=== PATIENT | male | born 1935 | race Caucasian/White ===

== ENCOUNTER 2020-04-30 07:22 | Emergency (ER) | payer MEDICARE ==
[~2020-04-30] VITALS: Ht 177.8 cm; Wt 90.9 kg
[2020-04-30] MEDS ORDERED: MORPHINE SULFATE 4 MG/ML, 1ML ONE (07:44)
[2020-04-30] MEDS ORDERED: PLEASE ENTER HEIGHT AND WEIGHT MC SCH (08:00)
[2020-04-30] MEDS ORDERED: MORPHINE SULFATE 4 MG/ML, 1ML IVPush PRN (08:00)
[2020-04-30] MEDS ORDERED: SODIUM CHLORIDE FLUSH 10ML SYR IVF ONE (08:00)
[2020-04-30] MEDS ORDERED: PLEASE ENTER ALLERGIES MC SCH (08:00)
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
[2020-04-30] MEDS ORDERED: LIDOCAINE 1%-EPI 1:100K, 20ML SQ ONE (09:00)
[2020-04-30] MEDS ORDERED: LIDOCAINE 1%-EPI 1:100K, 20ML ONE (09:05)
[2020-04-30] MEDS ORDERED: NEOSPORIN OINT. PKT 1 PACKET ONE ×2 (09:41→09:56)
[2020-04-30] MEDS ORDERED: OXYcodone/APAP 5/325MG TABLET ONE (10:13)
[2020-04-30] MEDS ORDERED: OXYcodone/APAP 5/325MG TABLET PO ONE (10:30)
== END 2020-04-30 10:19 | disposition home or self-care (01) ==
LOC: MERGE 09:33 → ED 09:33
DX: S42.222A 2-part displaced fracture of surgical neck of left humerus, initial encounter for closed fracture (principal); S01.111A Laceration without foreign body of right eyelid and periocular area, initial encounter; S50.812A Abrasion of left forearm, initial encounter; I10 Essential (primary) hypertension; E78.00 Pure hypercholesterolemia, unspecified; W01.0XXA Fall on same level from slipping, tripping and stumbling without subsequent striking against object, initial encounter; Y93.89 Activity, other specified; Y92.009 Unspecified place in unspecified non-institutional (private) residence as the place of occurrence of the external cause; Y99.8 Other external cause status
CPT/HCPCS: 12011; 70450; 73030; 96374; 99284; J2270

== ENCOUNTER 2020-05-05 10:02 | Emergency (ER) | payer MEDICARE, OTHER ==
[~2020-05-05] VITALS: Ht 177.8 cm; Wt 89.4 kg
[2020-05-05 10:05] VITALS: BP 153/69
--- NOTE | 2020-05-05 10:19 | NUR ---
[facility] WATTS AT BEDSIDE FOR STAPLE REMOVAL.
--- NOTE | 2020-05-05 11:17 | NUR ---
PT D/C PER TITA, VERBALIZED UNDERSTANDING OF D/C INSTRUCTIONS.
== END 2020-05-05 11:19 | disposition home or self-care (01) ==
LOC: ED 10:34
DX: S01.111D Laceration without foreign body of right eyelid and periocular area, subsequent encounter (principal); I10 Essential (primary) hypertension; X58.XXXD Exposure to other specified factors, subsequent encounter
CPT/HCPCS: 99281

== ENCOUNTER 2021-02-03 15:56 | Emergency (ER) | payer MEDICARE ==
[~2021-02-03] VITALS: Ht 177.8 cm; Wt 95.0 kg
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
[2021-02-03] MEDS ORDERED: OMNIPAQUE 350 MG/ML, 100ML BOTTLE ONE (16:40)
[2021-02-03] MEDS ORDERED: SODIUM CHLORIDE FLUSH 10ML SYR IVF ONE (17:00)
[2021-02-03] MEDS ORDERED: MORPHINE SULFATE 4 MG/ML, 1ML ONE ×3 (17:02→17:59)
[2021-02-03] MEDS: MORPHINE SULFATE 4 MG/ML, 1ML IVPush PRN ×2 (17:05→17:22)
--- NOTE | 2021-02-03 17:11 | NUR ---
PT MEDICATED PER EMAR FOR 10 R. RIB PAIN. PT POSTIONED TO COMFORT. VSS. DAUGHTER AT BEDSIDE.
[2021-02-03 17:44] LABS: BASOPHILS % (AUTO) 0 % (0-1); EOSINOPHILS % (AUTO) 1 % (1-7); LYMPHOCYTES % (AUTO) 9 % (22-44); MEAN CORPUSCULAR HEMOGLOBIN 34.2 pg (27.5-34.5); MEAN CORPUSCULAR HGB CONC 34.2 g/dL (33.2-36.2); MEAN PLATELET VOLUME 7.3 fL (7.4-10.4); MONOCYTES % (AUTO) 5 % (2-9); NEUTROPHILS % (AUTO) 84 % (42-75); PLATELET COUNT 178 x10^3/uL (130-400); RED BLOOD COUNT 4.82 x10^6/uL (4.38-5.82); RED CELL DISTRIBUTION WIDTH 13.2 % (9.4-14.8)
[2021-02-03 17:56] LABS: ALANINE AMINOTRANSFERASE 46 U/L (12-78); ALBUMIN 3.4 g/dL (3.4-5.0); ANION GAP 6 mmol/L (5-15); CALCIUM 8.7 mg/dL (8.5-10.1); CHLORIDE 112 mmol/L (98-107); CREATININE 1.64 mg/dL (0.7-1.3)
[2021-02-03 17:59] LABS: ALKALINE PHOSPHATASE 69 U/L (45-117); BILIRUBIN,TOTAL 0.4 mg/dL (0.2-1.0); TOTAL PROTEIN 7.5 g/dL (6.4-8.2)
[2021-02-03] MEDS ORDERED: MORPHINE SULFATE 4 MG/ML, 1ML IVPush ONE (18:00)
[2021-02-03 18:06] LABS: PROTHROMBIN TIME 10.7 Seconds (9.6-11.5)
[2021-02-03 18:07] LABS: MD SCAN
--- NOTE | 2021-02-03 18:12 | NUR ---
pt to ct now. daughter in room
[2021-02-03] MEDS ORDERED: SODIUM CHLORIDE 0.9%, 500ML IVBOLUS ONE (18:30)
[2021-02-03 18:57] VITALS: BP 164/76
--- NOTE | 2021-02-03 19:28 | NUR ---
tech at bedside to bandage wounds
== END 2021-02-03 21:11 | disposition home or self-care (01) ==
LOC: ED 18:51
DX: S20.211A Contusion of right front wall of thorax, initial encounter (principal); I10 Essential (primary) hypertension; E78.00 Pure hypercholesterolemia, unspecified; W18.39XA Other fall on same level, initial encounter; Y93.89 Activity, other specified; Y92.89 Other specified places as the place of occurrence of the external cause; Y99.8 Other external cause status
CPT/HCPCS: 36415; 71260; 74177; 80053; 83690; 85025; 85610; 85730; 96374; 96375; 99285; J2270; J7040; Q9967